=== PATIENT | male | born 1970 | race Asian ===

== ENCOUNTER 2020-09-03 09:06 | Emergency (ER) | payer MEDICAID ==
[~2020-09-03] VITALS: Ht 182.9 cm; Wt 73.0 kg
[2020-09-03] MEDS ORDERED: CETIRIZINE 10MG TABLET PO STA (10:28)
[2020-09-03 11:20] VITALS: BP 106/85
== END 2020-09-03 11:21 | disposition home or self-care (01) ==
LOC: EDSEX 09:06 → ER 09:06
DX: R06.7 Sneezing (principal); Z76.0 Encounter for issue of repeat prescription
CPT/HCPCS: 99283

== ENCOUNTER 2020-12-12 07:38 | Emergency (ER) | payer MEDICAID ==
[~2020-12-12] VITALS: Ht 177.8 cm; Wt 77.0 kg
[2020-12-12] MEDS ORDERED: FLUORESCEIN SODIUM 1MG/STRIP BOTHEYE ONE (08:15)
[2020-12-12] MEDS ORDERED: TETRACAINE 0.5% OPHTH DROPS 4ML BOTHEYE ONE (08:15)
[2020-12-12 10:30] VITALS: BP 118/68
== END 2020-12-12 10:31 | disposition home or self-care (01) ==
LOC: ER 07:55
DX: H57.89 Other specified disorders of eye and adnexa (principal); T78.40XA Allergy, unspecified, initial encounter; X58.XXXA Exposure to other specified factors, initial encounter
CPT/HCPCS: 99283

== ENCOUNTER 2021-05-29 06:13 | Emergency (ER) | payer MEDICAID ==
[~2021-05-29] VITALS: Ht 182.9 cm; Wt 74.0 kg
[2021-05-29 07:12] LABS: BASOPHILS % 1.1 % (0.0-2.0); EOSINOPHILS % 5.2 % (0.0-5.0); HEMATOCRIT. 43.7 % (42.0-52.0); HEMOGLOBIN. 15.1 g/dL (14.0-18.0); LYMPHOCYTES % 42.2 % (20.0-50.0); MEAN CORPUSCULAR HEMOGLOBIN 30.3 pg (28.0-32.0); MEAN CORPUSCULAR VOLUME 87.6 fL (80.0-94.0); MONOCYTES % 10.1 % (2.0-8.0); NEUTROPHILS % 41.4 % (40.0-76.0); PLATELET 215 x1000/uL (130-400); RED BLOOD CELL COUNT 4.98 mill/uL (4.7-6.1); RED CELL DISTRIBUTION WIDTH 14.2 % (11.6-14.6)
[2021-05-29 07:18] LABS: CHLORIDE 105 mEq/L (98-107)
[2021-05-29 08:41] LABS: CLARITY URINE CLEAR (CLEAR); COLOR URINE YELLOW (YELLOW); KETONES URINE NEGATIVE (NEGATIVE); LEUKOCYTE ESTERASE URINE NEGATIVE (NEGATIVE); NITRITE URINE NEGATIVE (NEGATIVE); OCCULT BLOOD URINE 1+ (NEGATIVE); PROTEIN URINE NEGATIVE (NEGATIVE); SPECIFIC GRAVITY URINE 1.017 (1.005-1.030); UROBILINOGEN URINE 0.2 E.U./dL (0.2-1.0)
[2021-05-29] MEDS ORDERED: IOHEXOL-300 100 ML BOTTLE ONE (09:31)
[2021-05-29 09:36] LABS: PROTHROMBIN TIME 10.8 sec (9.6-11.0)
[2021-05-29 10:24] VITALS: BP 128/64
== END 2021-05-29 10:25 | disposition home or self-care (01) ==
LOC: ER 06:13
DX: R10.30 Lower abdominal pain, unspecified (principal)
CPT/HCPCS: 36415; 74177; 80053; 81003; 83690; 85025; 85610; 99285; Q9967; Z7610